=== PATIENT | female | born 1960 | race Caucasian/White ===

== ENCOUNTER 2020-09-30 16:38 | Emergency (ER) | payer OTHER ==
--- OUTSIDE RECORDS SUMMARY | 2020-09-30 16:41 | XMS REPORT | Continuity of Care Document ---
:1960 Author Organization [facility] Address [address] [place] [address] Care Team Providers Name Role Phone REINA Primary Care Physician Unavailable JERICHO Attending Clinician Unavailable ANGELINE JADE Attending Clinician Unavailable Payers Payer Name Policy Type Policy Number Effective Date Expiration Date Rochelle MARQUEZ O [id number] 2003 00:00:00 Problems This patient has no known problems. Allergies, Adverse Reactions, Alerts This patient has no known allergies or adverse reactions. Medications This patient has no known medications. Procedures This patient has no known procedures. Encounters Start End Encounter Admission Attending Care Care Encounter Source Date/Time Date/Time Type Type Clinicians Facility Department ID 2020-07-29 2020-07-29 Outpatient GERONIMO ECHAVARRIA MDA MDA [id number] 07:19:46 11:06:12 JUANA gagnon 2020-07-13 2020-07-13 Outpatient JASMIN GA MDA, MDA [id number] 10:18:06 11:44:46 Josh gagnon 2020-05-31 2020-05-31 Outpatient JASMIN GA MDA, MDA [id number] 00:00:00 00:00:00 Josh gagnon Results This patient has no known results.
--- NOTE | 2020-09-30 17:36 | RAD REPORT ---
EXAM DESCRIPTION: CT - Head Brain Wo Cont - 09/30/2020 5:23 pm CLINICAL HISTORY: DIZZINESS Headache, drowsiness, CVA symptomology COMPARISON: Head Brain Wo Cont dated 08/29/2018 TECHNIQUE: All CT scans are performed using dose optimization technique as appropriate and may inclu de automated exposure control or mA/KV adjustment according to patient size. FINDINGS: No intracranial hemorrhage, hydrocephalus or extra-axial fluid collection.Mild gliosis see n in the left posterior parietal lobe is unchanged.No areas of brain edema or evidence of midline shane ft. The paranasal sinuses and mastoids are clear. The calvarium is intact. IMPRESSION: No acute intracranial abnormality.
--- NOTE | 2020-09-30 17:49 | RAD REPORT ---
EXAM DESCRIPTION: RAD - Chest Single View - 09/30/2020 5:41 pm CLINICAL HISTORY: DYSPNEA Chest pain. COMPARISON: No comparisons FINDINGS: Portable technique limits examination quality. The lungs are mildly emphysematous but grossly clear. The heart is normal in size. No displaced fract ures. IMPRESSION: No acute intrathoracic process suspected.
[2020-09-30 17:50] LABS: Urine Blood NEGATIVE (NEG); Urine Glucose NEGATIVE (NEG); Urine Protein NEGATIVE (NEG); Urine Specific Gravity 1.015 (1.005-1.030)
[2020-09-30 17:57] LABS: Absolute Lymphocytes (CBC) 1.8 K/uL (0.7-4.9); Hematocrit 40.1 % (36.0-45.0); Lymphocytes % 36.7 % (15.3-44.8); MPV 9.5 fL (7.6-11.3); RBC Red Blood Cell Count 4.56 M/uL (3.86-4.86)
[2020-09-30 17:58] LABS: Protime INR 0.97
[2020-09-30] MEDS ORDERED: ASPIRIN 81 MG CHEWABLE TABLET ONE (18:09)
[2020-09-30] MEDS ORDERED: CLOPIDOGREL 75 MG TABLET ONE (18:09)
[2020-09-30 18:13] LABS: ALT/SGPT 21 U/L (12-78); AST/SGOT 19 U/L (15-37); Albumin 4.1 g/dL (3.4-5.0); Alkaline Phosphatase 80 U/L (45-117); BUN Blood Urea Nitrogen 21 mg/dL (7-18); Bicarbonate 31 mmol/L (21-32); Bilirubin Direct < 0.1 mg/dL (0-0.2); Bilirubin Total 0.3 mg/dL (0.2-1.0); Glucose Level 114 mg/dL (74-106); Magnesium 2.3 mg/dL (1.8-2.4); NT PRO-BNP 41 pg/mL (<125); Potassium 3.9 mmol/L (3.5-5.1); Protein, Total 7.8 g/dL (6.4-8.2); Sodium Level 141 mmol/L (136-145); Troponin (Emerg Dept Use Only) < 0.02 ng/mL (0.0-0.045)
--- NOTE | 2020-09-30 18:40 | EDPHYS ---
Physician Documentation [facility] Name: Preeti Lipscomb Age: 60 yrs Sex: Female : 1960 Arrival Date: 09/30/2020 Time: 16:47 Bed 16 Private MD: ED Physician Daniel Barney HPI: 09/30 18:46 This 60 yrs old Female presents to ER via Ambulatory with complaints of jr8 Vision Problem, Dizziness. 18:46 Onset: The symptoms/episode began/occurred acutely, just prior to arrival, today. jr8 Associated signs and symptoms: The patient has no apparent associated signs or symptoms. The patient has experienced similar episodes in the past, a few times. The patient has not recently seen a physician. Patient with history of TIAs in past. Off of her antiplatelet meds for a few years. Stated that she was walking in store and started to have visual defect to upper left corner of eye with dizziness and headache. Has had similar symptoms in past and ended up being TIA in nature . Historical: - Allergies: 16:58 Demerol; ll1 - PMHx: 16:58 TIA; kidney problems; ll1 - PSHx: 16:58 Hysterectomy; bladder sling; ll1 - Immunization history:: Flu vaccine is not up to date. - Social history:: Smoking status: Patient denies any tobacco usage or history of. ROS: 18:46 ENT: Negative for injury, pain, and discharge, Neck: Negative for injury, pain, and jr8 swelling, Cardiovascular: Negative for chest pain, palpitations, and edema, Respiratory: Negative for shortness of breath, cough, wheezing, and pleuritic chest pain, Abdomen/GI: Negative for abdominal pain, nausea, vomiting, diarrhea, and constipation, Back: Negative for injury and pain, MS/Extremity: Negative for injury and deformity, Skin: Negative for injury, rash, and discoloration. 18:46 Eyes: Positive for visual disturbance. 18:46 Neuro: Positive for dizziness, weakness. Exam: 18:46 Eyes: Pupils equal round and reactive to light, extra-ocular motions intact. Lids and jr8 lashes normal. Conjunctiva and sclera are non-icteric and not injected. Cornea within normal limits. Periorbital areas with no swelling, redness, or edema. ENT: Nares patent. No nasal discharge, no septal abnormalities noted. Tympanic membranes are normal and external auditory canals are clear. Oropharynx with no redness, swelling, or masses, exudates, or evidence of obstruction, uvula midline. Mucous membranes moist. Neck: Trachea midline, no thyromegaly or masses palpated, and no cervical lymphadenopathy. Supple, full range of motion without nuchal rigidity, or vertebral point tenderness. No Meningismus. Cardiovascular: Regular rate and rhythm with a normal S1 and S2. No gallops, murmurs, or rubs. Normal PMI, no JVD. No pulse deficits. Respiratory: Lungs have equal breath sounds bilaterally, clear to auscultation and percussion. No rales, rhonchi or wheezes noted. No increased work of breathing, no retractions or nasal flaring. Abdomen/GI: Soft, non-tender, with normal bowel sounds. No distension or tympany. No guarding or rebound. No evidence of tenderness throughout. Back: No spinal tenderness. No costovertebral tenderness. Full range of motion. Skin: Warm, dry with normal turgor. Normal color with no rashes, no lesions, and no evidence of cellulitis. MS/ Extremity: Pulses equal, no cyanosis. Neurovascular intact. Full, normal range of motion. Neuro: Awake and alert, GCS 15, oriented to person, place, time, and situation. Cranial nerves II-XII grossly intact. Motor strength 5/5 in all extremities. Sensory grossly intact. Cerebellar exam normal. Normal gait. Vital Signs: 16:54 BP 155 / 102; Pulse 71; Resp 16; Temp 97.3; Pulse Ox 98% ; Weight 67.59 kg; Height 5 ll1 ft. 3 in. (160.02 cm); Pain 5/10; 16:54 Body Mass Index 26.39 (67.59 kg, 160.02 cm) ll1 NIH Stroke Scale Scores: 17:15 NIHSS Score: 0 sv 18:46 NIHSS Score: 0 jr8 MDM: 17:12 Patient medically screened. jr8 18:37 Data reviewed: vital signs, nurses notes, lab test result(s), EKG, radiologic studies, jr8 CT scan, plain films. Data interpreted: Pulse oximetry: on room air is 98 %. Interpretation: normal. Counseling: I had a detailed discussion with the patient and/or guardian regarding: the historical points, exam findings, and any diagnostic results supporting the discharge/admit diagnosis, lab results, radiology results, the need for outpatient follow up, a neurologist, to return to the emergency department if symptoms worsen or persist or if there are any questions or concerns that arise at home. ED course: Patient with complete resolution of symptoms. Has history of TIAs in past but not on any antiplatelet therapy. Detailed discussion with needing this along with antilipidemic medication. Patient good with starting these and f/u with her neurologist. Also knows to come back if worse . 09/30 17:12 Order name: Basic Metabolic Panel; Complete Time: 18:27 09/30 17:12 Order name: CBC with Diff; Complete Time: 18: 09/30 17:12 Order name: LFT's; Complete Time: 18: 09/30 17:12 Order name: Magnesium; Complete Time: 18: 09/30 17:12 Order name: NT PRO-BNP; Complete Time: 18: 09/30 17:12 Order name: PT-INR; Complete Time: 18:09/30 17:12 Order name: Troponin (emerg Dept Use Only); Complete Time: 18:27 09/30 17:12 Order name: XRAY Chest (1 view); Complete Time: 18:08 09/30 17:14 Order name: CT Head Brain wo Cont; Complete Time: 17:43 tw2 09/30 17:45 Order name: Glucose, Ancillary Testing; Complete Time: 17:46 EDMS 09/30 17:45 Order name: Urine Dipstick--Ancillary (enter results); Complete Time: 18:08 bd 09/30 17:12 Order name: EKG; Complete Time: 17:13 09/30 17:12 Order name: Cardiac monitoring; Complete Time: 17:18 09/30 17:12 Order name: EKG - Nurse/Tech; Complete Time: 17:38 09/30 17:12 Order name: IV Saline Lock; Complete Time: 17:38 09/30 17:12 Order name: Labs collected and sent; Complete Time: 17:38 09/30 17:12 Order name: O2 Per Protocol; Complete Time: 17:38 09/30 17:12 Order name: O2 Sat Monitoring; Complete Time: 17:38 jr8 09/30 17:41 Order name: Urine Dipstick-Ancillary (obtain specimen); Complete Time: 17:41 sv Administered Medications: 17:58 Drug: PlaVIX 75 mg Route: PO; sv 19:15 Follow up: Response: No adverse reaction sv 17:59 Drug: Aspirin Chewable Tablet 162 mg Route: PO; sv 19:15 Follow up: Response: No adverse reaction sv Disposition: 10/01 07:32 Co-signature as Attending Physician, Daniel Barney MD I agree with the assessment and tw4 plan of care. Disposition: 09/30/20 18:39 Discharged to Home. Impression: Transient cerebral ischemic attack, unspecified. - Condition is Stable. - Discharge Instructions: Stroke Prevention, Transient Ischemic Attack, Amaurosis Fugax. - Prescriptions for Plavix 75 mg Oral Tablet - take 1 tablet by ORAL route once daily; 20 tablet. - Medication Reconciliation Form, Thank You Letter, Antibiotic Education, Prescription Opioid Use form. - Follow up: Suleiman Arriola MD; When: 2 - 3 days; Reason: Recheck today's complaints, Continuance of care, Re-evaluation by your physician. - Problem is new. - Symptoms have improved. - Notes: rosuvastatin 10mg once daily Aspirin 81mg once daily NIH Stroke Scale - NIH Stroke Score Date: 09/30/2020 Time: 17:15 Total Score = 0 1a. Level of Consciousness (LOC) - 0(Alert) 1b. Level of Consciousness (LOC) (Year \T\ Age) - 0(Both) 1c. LOC Commands (Open \T\ Closes Eyes/Software Asset Manager) - 0(Both) 2. Best Gaze (Lateral Gaze Paresis) - 0(Normal) 3. Visual Field Loss - 0(No visual loss) 4. Facial Palsy - 0(Normal) 5a. Left Arm: Motor (10-second hold) - 0(No drift) 5b. Right Arm: Motor (10-second hold) - 0(No drift) 6a. Left Leg: Motor (5-second hold - always test supine) - 0(No drift) 6b. Right Leg: Motor (5-second hold - always test supine) - 0(No drift) 7. Limb Ataxia (finger/nose \T\ heel/downs - test with eyes open) - 0(Absent) 8. Sensory Loss (pinprick arms/legs/face) - 0(Normal) 9. Best Language: Aphasia (description/naming/reading) - 0(No aphasia) 10. Dysarthria (speech clarity - read or repeat words) - 0(Normal) 11. Extinction and Inattention (visual/tactile/auditory/spatial/personal) - 0(No abnormality) Initials: kezia NIH Stroke Scale - NIH Stroke Score Date: 09/30/2020 Time: 18:46 Total Score = 0 1a. Level of Consciousness (LOC) - 0(Alert) 1b. Level of Consciousness (LOC) (Year \T\ Age) - 0(Both) 1c. LOC Commands (Open \T\ Closes Eyes/Software Asset Manager) - 0(Both) 2. Best Gaze (Lateral Gaze Paresis) - 0(Normal) 3. Visual Field Loss - 0(No visual loss) 4. Facial Palsy - 0(Normal) 5a. Left Arm: Motor (10-second hold) - 0(No drift) 5b. Right Arm: Motor (10-second hold) - 0(No drift) 6a. Left Leg: Motor (5-second hold - always test supine) - 0(No drift) 6b. Right Leg: Motor (5-second hold - always test supine) - 0(No drift) 7. Limb Ataxia (finger/nose \T\ heel/downs - test with eyes open) - 0(Absent) 8. Sensory Loss (pinprick arms/legs/face) - 0(Normal) 9. Best Language: Aphasia (description/naming/reading) - 0(No aphasia) 10. Dysarthria (speech clarity - read or repeat words) - 0(Normal) 11. Extinction and Inattention (visual/tactile/auditory/spatial/personal) - 0(No abnormality) Initials: jr8 Signatures: Dispatcher [employer] EDMS Carmelina Cao RN RN Alejandro Hernadez PA PA jr8 Daniel Barney MD MD tw4 Shane Nicole RN RN ll1 Corrections: (The following items were deleted from the chart) 09/30 17:26 17:23 CT-STROKE BRAIN W/O CONTRAST+CT.RAD.BRZ ordered. EDMS EDMS 19:15 18:39 09/30/2020 18:39 Discharged to Home. Impression: Transient cerebral sv ischemic attack, unspecified. Condition is Stable. Forms are Medication Reconciliation Form, Thank You Letter, Antibiotic Education, Prescription Opioid Use. Follow up: Suleiman Arriola; When: 2 - 3 days; Reason: Recheck today's complaints, Continuance of care, Re-evaluation by your physician. Problem is new. Symptoms have improved. jr8
--- NOTE | 2020-09-30 18:40 | ER ---
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 No trouble walking or talking. Coronavirus screen: Client denies travel out of the [place] in the last 14 days. At this time, the client does not indicate any symptoms associated with coronavirus-19. Ebola Screen: Patient denies travel to an Ebola-affected area in the 21 days before illness onset. Initial Sepsis Screen: Does the patient meet any 2 criteria? No. Patient's initial sepsis screen is negative. Does the patient have a suspected source of infection? No. Patient's initial sepsis screen is negative. Risk Assessment: Do you want to hurt yourself or someone else? Patient reports no desire to harm self or others. Onset of symptoms was September 30, 2020. 16:54 Method Of Arrival: Ambulatory ll1 16:54 Acuity: RAFAEL 2 ll1 Historical: - Allergies: 16:58 Demerol; ll1 - PMHx: 16:58 TIA; kidney problems; ll1 - PSHx: 16:58 Hysterectomy; bladder sling; ll1 - Immunization history:: Flu vaccine is not up to date. - Social history:: Smoking status: Patient denies any tobacco usage or history of. Screenin:15 Abuse screen: Denies threats or abuse. Denies injuries from another. Nutritional sv screening: No deficits noted. Tuberculosis screening: No symptoms or risk factors identified. Fall Risk None identified. Assessment: 17:14 Reassessment: Code Stroke called. sv 17:15 Reassessment: Alejandro COVINGTON at bedside. sv 17:15 General: Appears in no apparent distress. comfortable, well groomed, well developed, sv Behavior is calm, cooperative, appropriate for age. Pain: Denies pain. Neuro: Level of Consciousness is awake, alert, obeys commands, Oriented to person, place, time, situation, Kitchenhand are equal bilaterally Moves all extremities. Full function Gait is steady, Speech is normal, Facial symmetry appears normal. Respiratory: Airway is patent Respiratory effort is even, unlabored, Respiratory pattern is regular, symmetrical. Derm: Skin is intact, Skin is pink, warm \T\ dry. Musculoskeletal: Range of motion: intact in all extremities. 17:58 Reassessment: Patient appears in no apparent distress at this time. No changes from sv previously documented assessment. Patient and/or family updated on plan of care and expected duration. Pain level reassessed. Patient is alert, oriented x 3, equal unlabored respirations, skin warm/dry/pink. 19:15 Reassessment: Patient appears in no apparent distress at this time. No changes from sv previously documented assessment. Patient and/or family updated on plan of care and expected duration. Pain level reassessed. Patient is alert, oriented x 3, equal unlabored respirations, skin warm/dry/pink. Vital Signs: 16:54 BP 155 / 102; Pulse 71; Resp 16; Temp 97.3; Pulse Ox 98% ; Weight 67.59 kg; Height 5 ll1 ft. 3 in. (160.02 cm); Pain 5/10; 16:54 Body Mass Index 26.39 (67.59 kg, 160.02 cm) ll1 NIH Stroke Scale Scores: 17:15 NIHSS Score: 0 sv 18:46 NIHSS Score: 0 jr8 ED Course: 16:47 Patient arrived in ED. ds1 16:57 Triage completed. ll1 16:58 Arm band placed on. ll1 17:10 Carmelina Cao, EZIO is Primary Nurse. sv 17:11 Alejandro Johnston PA is PHCP. jr8 17:11 Daniel Barney MD is Attending Physician. jr8 17:15 Patient has correct armband on for positive identification. Placed in gown. Bed in low sv position. Call light in reach. Side rails up X2. library monitor on. Pulse ox on. NIBP on. Door closed. Head of bed elevated. 17:[address] via stretcher. sv 17:24 CT Head Brain wo Cont In Process Unspecified. EDMS 17:26 Patient moved back from CT. sv 17:27 X-ray(s) taken. sv 17:30 Inserted saline lock: 20 gauge in left antecubital area, using aseptic technique. Blood sv collected. Flushed left antecubital with 5 ml normal saline. 17:40 EKG done, by ED staff, reviewed by Alejandro COVINGTON. sv 17:41 XRAY Chest (1 view) In Process Unspecified. EDMS 18:39 Suleiman Arriola MD is Referral Physician. jr8 19:15 No provider procedures requiring assistance completed. IV discontinued, intact, sv bleeding controlled, No redness/swelling at site. Pressure dressing applied. Administered Medications: 17:58 Drug: PlaVIX 75 mg Route: PO; sv 19:15 Follow up: Response: No adverse reaction sv 17:59 Drug: Aspirin Chewable Tablet 162 mg Route: PO; sv 19:15 Follow up: Response: No adverse reaction sv Outcome: 18:39 Discharge ordered by . jr8 19:15 Patient left the ED. sv 19:15 Discharged to home ambulatory. sv 19:15 Condition: stable 19:15 Discharge instructions given to patient, Instructed on discharge instructions, follow up and referral plans. medication usage, Demonstrated understanding of instructions, follow-up care, medications, Prescriptions given X 1. NIH Stroke Scale - NIH Stroke Score Date: 09/30/2020 Time: 17:15 Total Score = 0 1a. Level of Consciousness (LOC) - 0(Alert) 1b. Level of Consciousness (LOC) (Year \T\ Age) - 0(Both) 1c. LOC Commands (Open \T\ Closes Eyes/Supply Technician) - 0(Both) 2. Best Gaze (Lateral Gaze Paresis) - 0(Normal) 3. Visual Field Loss - 0(No visual loss) 4. Facial Palsy - 0(Normal) 5a. Left Arm: Motor (10-second hold) - 0(No drift) 5b. Right Arm: Motor (10-second hold) - 0(No drift) 6a. Left Leg: Motor (5-second hold - always test supine) - 0(No drift) 6b. Right Leg: Motor (5-second hold - always test supine) - 0(No drift) 7. Limb Ataxia (finger/nose \T\ heel/downs - test with eyes open) - 0(Absent) 8. Sensory Loss (pinprick arms/legs/face) - 0(Normal) 9. Best Language: Aphasia (description/naming/reading) - 0(No aphasia) 10. Dysarthria (speech clarity - read or repeat words) - 0(Normal) 11. Extinction and Inattention (visual/tactile/auditory/spatial/personal) - 0(No abnormality) Initials: kezia NIH Stroke Scale - NIH Stroke Score Date: 09/30/2020 Time: 18:46 Total Score = 0 1a. Level of Consciousness (LOC) - 0(Alert) 1b. Level of Consciousness (LOC) (Year \T\ Age) - 0(Both) 1c. LOC Commands (Open \T\ Closes Eyes/Supply Technician) - 0(Both) 2. Best Gaze (Lateral Gaze Paresis) - 0(Normal) 3. Visual Field Loss - 0(No visual loss) 4. Facial Palsy - 0(Normal) 5a. Left Arm: Motor (10-second hold) - 0(No drift) 5b. Right Arm: Motor (10-second hold) - 0(No drift) 6a. Left Leg: Motor (5-second hold - always test supine) - 0(No drift) 6b. Right Leg: Motor (5-second hold - always test supine) - 0(No drift) 7. Limb Ataxia (finger/nose \T\ heel/downs - test with eyes open) - 0(Absent) 8. Sensory Loss (pinprick arms/legs/face) - 0(Normal) 9. Best Language: Aphasia (description/naming/reading) - 0(No aphasia) 10. Dysarthria (speech clarity - read or repeat words) - 0(Normal) 11. Extinction and Inattention (visual/tactile/auditory/spatial/personal) - 0(No abnormality) Initials: jrDwayne Signatures: Dispatcher [employer] Carmelina Diallo, Maria L Carl RN ds1 Alejandro Johnston PA PA jrShane Mcintosh RN RN ll1
[2020-09-30 19:22] VITALS: BP 155/102; TEMP 97.3; O2SAT 98
== END 2020-09-30 19:15 | disposition home or self-care (01) ==
LOC: ER 16:38
DX: G45.9 Transient cerebral ischemic attack, unspecified (principal); R29.700 NIHSS score 0; Z88.5 Allergy status to narcotic agent
CPT/HCPCS: 36415; 70450; 71045; 80048; 80076; 81003; 82947; 83735; 83880; 84484; 85025; 85610; 93005; 99285

== ENCOUNTER 2021-07-30 19:44 | Emergency (ER) | payer OTHER ==
--- OUTSIDE RECORDS SUMMARY | 2021-07-30 19:46 | XMS REPORT | Continuity of Care Document ---
:1960 Author Organization [facility] Address [address] [place] [address] Care Team Providers Name Role Phone REINA Primary Care Physician Unavailable ANGELINE JADE Attending Clinician Unavailable JERICHO Attending Clinician Unavailable Payers Payer Name Policy Type Policy Number Effective Date Expiration Date Rochelle MARQUEZ O [id number] 2003 00:00:00 Problems This patient has no known problems. Allergies, Adverse Reactions, Alerts This patient has no known allergies or adverse reactions. Medications This patient has no known medications. Procedures This patient has no known procedures. Encounters Start End Encounter Admission Attending Care Care Encounter Source Date/Time Date/Time Type Type Clinicians Facility Department ID 2021-01-11 2021-01-11 Outpatient GERONIMO JADE JASMIN NIEVES MDA [id number] 14:13:51 15:18:40 Josh gagnon 2020-10-14 2020-10-14 Outpatient GERONIMO ECHAVARRIA MDA MDA [id number] 10:03:57 12:00:57 JUANA gagnon 2020-10-14 2020-10-14 Outpatient JASMIN GA MDA MDA [id number] 08:31:01 09:10:27 Josh gagnon 2020-07-29 2020-07-29 Outpatient GERONIMO ECHAVARRIA LIZBETH MDA [id number] 07:19:46 11:06:12 JUANA gagnon 2020-07-13 2020-07-13 Outpatient JASMIN GA MDA MDA [id number] 10:18:06 11:44:46 Josh gagnon 2020-05-31 2020-05-31 Outpatient GERONIMO JASMIN JADE MDA MDA [id number] 00:00:00 00:00:00 Josh gagnon Results This patient has no known results.
[2021-07-30] MEDS ORDERED: ALBUTEROL 2.5 MG/3 ML NEB SOL ONE (20:03)
[2021-07-30] MEDS ORDERED: IPRATROPIUM BROM 0.5MG/2.5ML ONE (20:03)
[2021-07-30] MEDS ORDERED: HYDROCODONE/CHLORPHEN 5 ML/OSYR ONE (20:03)
[2021-07-30 20:19] LABS: Absolute Lymphocytes (CBC) 1.2 K/uL (0.7-4.9); Basophils % 0.6 % (0-1.3); Hematocrit 37.8 % (36.0-45.0); Lymphocytes % 27.7 % (15.3-44.8); MPV 8.4 fL (7.6-11.3); RBC Red Blood Cell Count 4.35 M/uL (3.86-4.86)
[2021-07-30 20:27] LABS: Protime INR 1.04
[2021-07-30 20:43] LABS: ALT/SGPT 33 U/L (12-78); AST/SGOT 31 U/L (15-37); Albumin 3.3 g/dL (3.4-5.0); Alkaline Phosphatase 64 U/L (45-117); BUN Blood Urea Nitrogen 12 mg/dL (7-18); Bicarbonate 27 mmol/L (21-32); Bilirubin Direct < 0.1 mg/dL (0-0.2); Bilirubin Total 0.3 mg/dL (0.2-1.0); Glucose Level 117 mg/dL (74-106); Magnesium 2.1 mg/dL (1.8-2.4); NT PRO-BNP 56 pg/mL (<125); Potassium 3.8 mmol/L (3.5-5.1); Protein, Total 7.1 g/dL (6.4-8.2); Sodium Level 139 mmol/L (136-145); Troponin (Emerg Dept Use Only) < 0.02 ng/mL (0.0-0.045)
[2021-07-30 21:12] LABS: SARS-COV-2 RT PCR POSITIVE (NEGATIVE)
[2021-07-30] MEDS ORDERED: ACETAMINOPHEN 500 MG TAB ONE (21:13)
[2021-07-30] MEDS ORDERED: CASIRIVIMAB/IMDEVIMAB 10 ML VIAL ONE (21:39)
[2021-07-30] MEDS ORDERED: NA CHLORIDE 0.9% 250 ML ONE (21:39)
[2021-07-30] MEDS ORDERED: METHYLPREDNISOLONE 125 MG INJ ONE (21:39)
[2021-07-30] MEDS ORDERED: NA CHLORIDE 0.9% 1,000 ML ONE (21:39)
--- NOTE | 2021-07-30 21:51 | RAD REPORT ---
EXAM DESCRIPTION: RAD - Chest Single View - 07/30/2021 9:35 pm CLINICAL HISTORY: COUGH Chest pain. COMPARISON: Chest Single View dated 09/30/2020 FINDINGS: Portable technique limits examination quality. 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 The heart is normal in size. No displaced fractures.
[2021-07-30 22:18] LABS: Ferritin 369.6 ng/mL (8-388)
--- NOTE | 2021-07-31 01:33 | EDPHYS ---
Physician Documentation [facility] Name: Preeti Lipscomb Age: 61 yrs Sex: Female : 1960 Arrival Date: 07/30/2021 Time: 19:43 Bed 2 Private MD: ED Physician Kvng Enrique HPI: 07/30 20:00 This 61 yrs old Female presents to ER via EMS with complaints of Cough. cp 20:00 The patient or guardian reports cough, that is constant. Onset: The symptoms/episode cp began/occurred 4 day(s) ago. Associated signs and symptoms: Pertinent positives: fever, Pertinent negatives: chest pain, diarrhea, vomiting. Severity of symptoms: in the emergency department the symptoms are unchanged despite home interventions. Patient reports similar symptoms about 2 weeks ago and testing negative for COVID-19 12 days ago. Cough returned 4 days ago. Was seen by PCP who prescribed cough medicine. Patient is not vaccinated against COVID-19. Historical: - Allergies: 19:47 Demerol; em - PMHx: 19:47 kidney problems; TIA; Depressive disorder; Anxiety; Hypercholesterolemia; em - PSHx: 19:47 hysterectomy; bladder suspension; em - Immunization history:: Client reports having NOT received the Covid vaccine. - Social history:: Smoking status: Patient denies any tobacco usage or history of. ROS: 20:05 Constitutional: Positive for fever, Negative for body aches, chills, poor PO intake. cp 20:05 Eyes: Negative for injury, pain, redness, and discharge. cp 20:05 Neck: Negative for pain with movement, pain at rest, stiffness. 20:05 Cardiovascular: Negative for chest pain, edema, palpitations. 20:05 Respiratory: Positive for cough, "sounds productive", shortness of breath. 20:05 Abdomen/GI: Negative for vomiting, diarrhea, constipation, anorexia. 20:05 : Negative for urinary symptoms. 20:05 Neuro: Negative for altered mental status, headache, numbness, weakness. 20:05 All other systems are negative. Exam: 20:10 Constitutional: The patient appears in no acute distress, alert, awake, non-toxic, well cp developed, well nourished. 20:10 Head/Face: Normocephalic, atraumatic. cp 20:10 Eyes: Periorbital structures: appear normal, Conjunctiva: normal, no exudate, no injection, Sclera: no appreciated abnormality, Lids and lashes: appear normal, bilaterally. 20:10 ENT: External ear(s): are unremarkable, Ear canal(s): are normal, clear, TM's: dullness, bilaterally, Nose: is normal, Mouth: Lips: moist, Oral mucosa: pink and intact, moist, Posterior pharynx: Airway: no evidence of obstruction, patent, Tonsils: are normal in appearance, Uvula: midline, swelling, is not appreciated, erythema, is not appreciated, exudate, is not appreciated. 20:10 Neck: ROM/movement: is normal, is supple, without pain, no range of motions limitations, no meningismus. 20:10 Chest/axilla: Inspection: normal, Palpation: is normal, no crepitus, no tenderness. 20:10 Cardiovascular: Rate: normal, Rhythm: regular, Edema: is not appreciated, JVD: is not appreciated. 20:10 Respiratory: the patient does not display signs of respiratory distress, Respirations: labored breathing, that is mild, intercostal retractions, are absent, Breath sounds: bronchial sounds, that are mild, are heard diffusely, stridor, is not appreciated, + upper airway congestion. wheezing: is not appreciated. 20:10 Abdomen/GI: Inspection: abdomen appears normal, Bowel sounds: active, all quadrants, Palpation: abdomen is soft and non-tender, in all quadrants. 20:10 Back: pain, is absent, ROM is normal. 20:10 Skin: no rash present. 20:10 Neuro: Orientation: to person, place \\T\\ time. Mentation: is normal, Motor: moves all fours, strength is normal, Sensation: is normal. Vital Signs: 19:45 BP 122 / 78; Pulse 98; Resp 20; Pulse Ox 95% on R/A; Weight 68.04 kg; Height 5 ft. 2 em in. (157.48 cm); Pain 0/10; 21:09 BP 112 / 72; Pulse 106; Resp 20; Temp 100.9(O); Pulse Ox 92% on R/A; em 23:14 BP 109 / 66; Pulse 83; Resp 20; Pulse Ox 94% on R/A; em 11 00:18 BP 105 / 67; Pulse 77; Resp 18; Pulse Ox 90% on R/A; em 01:48 BP 106 / 72; Pulse 79; Resp 20; Pulse Ox 97% on R/A; em 07/30 19:45 Body Mass Index 27.44 (68.04 kg, 157.48 cm) em MDM: 07/30 19:54 Patient medically screened. cp 20:00 Differential diagnosis: bronchitis, flu, pneumonia, pulmonary embolism, COVID-19. 07/31 01:30 Data reviewed: vital signs, nurses notes, lab test result(s), radiologic studies, CT cp scan, plain films. 01:30 Test interpretation: by ED physician or midlevel provider: plain radiologic studies. cp Counseling: I had a detailed discussion with the patient and/or guardian regarding: the historical points, exam findings, and any diagnostic results supporting the discharge/admit diagnosis, lab results, radiology results, to return to the emergency department if symptoms worsen or persist or if there are any questions or concerns that arise at home. Response to treatment: the patient's symptoms have markedly improved after treatment. ED course: VSS. Patient appears non-toxic and no signs of respiratory distress. Will discharge to home for continued monitoring. 07/30 19:52 Order name: Basic Metabolic Panel; Complete Time: 21:26 cp 07/30 19:52 Order name: CBC with Diff; Complete Time: 21:26 cp 07/30 19:52 Order name: LFT's; Complete Time: 21:26 cp 07/30 19:52 Order name: Magnesium; Complete Time: 21:26 cp 07/30 19:52 Order name: NT PRO-BNP; Complete Time: 21:26 cp 07/30 19:52 Order name: PT-INR; Complete Time: 21:26 07/30 19:52 Order name: Troponin (emerg Dept Use Only); Complete Time: 21:26 cp 07/30 19:52 Order name: XRAY Chest (1 view); Complete Time: 23:27 cp 07/30 23:27 Interpretation: Report reviewed. 07/30 20:22 Order name: COVID-19/FLU A+B; Complete Time: 21:26 EDMS 07/30 21:30 Order name: CRP cp 07/30 21:30 Order name: Ferritin; Complete Time: 23:27 07/30 21:31 Order name: C-Reactive Protein; Complete Time: 23:27 EDMS 07/30 23:27 Interpretation: Abnormal: C-REACTIVE PROT 13.00. cp 07/30 19:52 Order name: EKG; Complete Time: 19:53 cp 07/30 19:52 Order name: Cardiac monitoring; Complete Time: 20:02 cp 07/30 19:52 Order name: EKG - Nurse/Tech; Complete Time: 20:02 cp 07/30 19:52 Order name: IV Saline Lock; Complete Time: 20:15 cp 07/30 19:52 Order name: Labs collected and sent; Complete Time: 20:15 cp 07/30 19:52 Order name: O2 Per Protocol; Complete Time: 20:02 07/30 19:52 Order name: O2 Sat Monitoring; Complete Time: 20:02 cp 07/30 21:33 Order name: CT Chest For PE Angio cp Administered Medications: 07/30 20:10 Drug: Tussionex Pennkinetic ER (chlorpheniramine-hydrocodone) Suspension 5 ml Route: PO;em 20:46 Follow up: Response: No adverse reaction; Marked relief of symptoms em 20:12 Drug: Albuterol - atroVENT (ipratropium) (3:1) (2.5 mg - 0.5 mg) 3 ml Route: Nebulizer; em 20:46 Follow up: Response: No adverse reaction; Marked relief of symptoms em 21:23 Drug: Tylenol 1000 mg Route: PO; em 07/31 02:02 Follow up: Response: No adverse reaction em 07/30 21:38 Not Given (Physician Discretion): Albuterol HFA Inhaler 2 puffs Inhalation once cp 21:52 Drug: NS 0.9% 500 ml Route: IV; Rate: bolus; Site: left antecubital; em 07/31 00:23 Follow up: IV Status: Completed infusion; IV Intake: 500ml em 07/30 21:53 Drug: SOLU-Medrol (methylPrednisoLONE) 125 mg Route: IVP; Site: right antecubital; em 07/31 00:23 Follow up: Response: No adverse reaction em 07/30 23:10 Drug: Casirivimab-Imdevimab Dose Pack 120 mg/mL-120 mg/mL (EUA) 1 application Route: em IV; Rate: calculated rate; Site: left antecubital; 07/31 00:23 Follow up: Response: No adverse reaction; IV Status: Completed infusion; IV Intake: em 270ml 07/30 23:13 Drug: NS 0.9% 500 ml Route: IV; Rate: 125 ml/hr; Site: left antecubital; em 07/31 02:01 Follow up: IV Status: Order to discontinue infusion; IV Intake: 500ml em Disposition: 19:09 Co-signature as Attending Physician, Kvng Enrique MD. [email or web address] Disposition Summary: 07/31/21 01:32 Discharge Ordered Location: Home cp Problem: new cp Symptoms: have improved cp Condition: Stable cp Diagnosis - Pneumonia due to SARS-associated coronavirus cp Followup: cp - With: Private Physician - When: 2 - 3 days - Reason: Recheck today's complaints Discharge Instructions: - Discharge Summary Sheet cp - Aspirin and Your Heart cp - COVID-19 cp - COVID-19 Frequently Asked Questions cp - 10 Things You Can Do to Manage Your COVID-19 Symptoms at Home - [facility] cp Forms: - Medication Reconciliation Form cp - Thank You Letter cp - Antibiotic Education cp - Prescription Opioid Use cp Prescriptions: - albuterol sulfate 90 mcg/actuation Inhalation HFA aerosol inhaler - inhale 1 puff by INHALATION route every 4-6 hours; 1 Device; Refills: 0, cp Product Selection Permitted - Zithromax Z-Zeeshan 250 mg Oral Tablet - take 1 tablet by ORAL route as directed for 5 days Day 1 - take two (2) tablets cp one time. Day 2, 3, 4 , 5 take one (1) tablet once daily.; 6 tablet; Refills: 0, Product Selection Permitted - Prednisone 20 mg Oral Tablet - take 2 tablets by ORAL route once daily for 5 days then 1 tablet daily for 3 cp days, then 1/2 tablet daily for 2 days; 14 tablet; Refills: 0, Product Selection Permitted Signatures: Dispatcher [employer] Gavino Evans RN RN em Daniel Freeman PA PA cp Kvng Enrique MD MD [email or web address] Corrections: (The following items were deleted from the chart) 07/30 20:22 19:53 CORONAVIRUS+MR.LAB.BRZ ordered. EDNJ EDMS 20:23 19:53 Influenza Screen (A \\T\\ B)+BA.LAB.BRZ ordered. EDMS EDMS
--- NOTE | 2021-07-31 01:33 | ER ---
Nurse's Notes [facility] Name: Preeti Lipscomb Age: 61 yrs Sex: Female : 1960 Arrival Date: 07/30/2021 Time: 19:43 Bed 2 Private MD: Diagnosis: Pneumonia due to SARS-associated coronavirus Presentation: 07/30 19:45 Chief complaint: EMS states: covid symptoms, lost of taste and smell today, fever em yesterday, tested neg. 12 days ago, SPO2 92-94% on arrival. Coronavirus screen: Vaccine status: Patient reports being unvaccinated. Ebola Screen: Patient negative for fever greater than or equal to 101.5 degrees Fahrenheit, and additional compatible Ebola Virus Disease symptoms Patient denies exposure to infectious person. Patient denies travel to an Ebola-affected area in the 21 days before illness onset. No symptoms or risks identified at this time. Initial Sepsis Screen: Does the patient meet any 2 criteria? HR > 90 bpm. No. Patient's initial sepsis screen is negative. Does the patient have a suspected source of infection? No. Patient's initial sepsis screen is negative. Risk Assessment: Do you want to hurt yourself or someone else? Patient reports no desire to harm self or others. Onset of symptoms was July 30, 2021. 19:45 Method Of Arrival: EMS: [facility] em 19:45 Acuity: RAFAEL 3 em Historical: - Allergies: 19:47 Demerol; em - PMHx: 19:47 kidney problems; TIA; Depressive disorder; Anxiety; Hypercholesterolemia; em - PSHx: 19:47 hysterectomy; bladder suspension; em - Immunization history:: Client reports having NOT received the Covid vaccine. - Social history:: Smoking status: Patient denies any tobacco usage or history of. Screenin:45 Abuse screen: Denies threats or abuse. Nutritional screening: No deficits noted. em Tuberculosis screening: No symptoms or risk factors identified. Fall Risk None identified. Assessment: 19:50 General: Appears in no apparent distress. comfortable, well groomed, well developed, em well nourished, Behavior is calm, cooperative, appropriate for age, Reports fever for 12-24 hours. Pain: Denies pain. Neuro: Level of Consciousness is awake, alert, obeys commands, Oriented to person, place, time, situation, Appropriate for age. Cardiovascular: Capillary refill < 3 seconds Patient's skin is warm and dry. Respiratory: Reports shortness of breath cough that is Airway is patent Respiratory effort is even, unlabored, Respiratory pattern is regular, symmetrical, Breath sounds are diminished bilaterally. Derm: Skin is intact, is healthy with good turgor, Skin is pink, warm \T\ dry. Musculoskeletal: Capillary refill < 3 seconds, Range of motion: intact in all extremities. 21:08 Reassessment: Patient appears in no apparent distress at this time. Patient and/or em family updated on plan of care and expected duration. Pain level reassessed. Patient states feeling better. Patient states symptoms have improved. 23:10 Reassessment: Patient appears in no apparent distress at this time. Patient and/or em family updated on plan of care and expected duration. Pain level reassessed. Patient is alert, oriented x 3, equal unlabored respirations, skin warm/dry/pink. 07/31 00:18 Reassessment: Patient appears in no apparent distress at this time. Patient and/or em family updated on plan of care and expected duration. Pain level reassessed. Patient is alert, oriented x 3, equal unlabored respirations, skin warm/dry/pink. Vital Signs: 07/30 19:45 BP 122 / 78; Pulse 98; Resp 20; Pulse Ox 95% on R/A; Weight 68.04 kg; Height 5 ft. 2 em in. (157.48 cm); Pain 0/10; 21:09 BP 112 / 72; Pulse 106; Resp 20; Temp 100.9(O); Pulse Ox 92% on R/A; em 23:14 BP 109 / 66; Pulse 83; Resp 20; Pulse Ox 94% on R/A; em 07/31 00:18 BP 105 / 67; Pulse 77; Resp 18; Pulse Ox 90% on R/A; em 01:48 BP 106 / 72; Pulse 79; Resp 20; Pulse Ox 97% on R/A; em 07/30 19:45 Body Mass Index 27.44 (68.04 kg, 157.48 cm) em ED Course: 07/30 19:43 Patient arrived in ED. mw2 19:45 Patient has correct armband on for positive identification. Call light in reach. Side em rails up X2. Pulse ox on. NIBP on. 19:46 Triage completed. em 19:47 Arm band placed on. em 19:51 Daniel Freeman PA is [facility]. cp 19:51 Kvng Enrique MD is Attending Physician. cp 20:00 Gavino Alvarez, RN is Primary Nurse. em 20:00 Initial lab(s) drawn, by me, sent to lab. Inserted saline lock: 22 gauge in left em antecubital area, using aseptic technique. Blood collected. 20:02 EKG done, by ED staff, reviewed by Daniel COVINGTON. em 21:34 XRAY Chest (1 view) In Process Unspecified. EDMS 22:27 CT Chest For PE Angio In Process Unspecified. EDMS 11 01:47 No provider procedures requiring assistance completed. IV discontinued, intact, em bleeding controlled, No redness/swelling at site. Pressure dressing applied. Administered Medications: 07/30 20:10 Drug: Tussionex Pennkinetic ER (chlorpheniramine-hydrocodone) Suspension 5 ml Route: PO;em 20:46 Follow up: Response: No adverse reaction; Marked relief of symptoms em 20:12 Drug: Albuterol - atroVENT (ipratropium) (3:1) (2.5 mg - 0.5 mg) 3 ml Route: Nebulizer; em 20:46 Follow up: Response: No adverse reaction; Marked relief of symptoms em 21:23 Drug: Tylenol 1000 mg Route: PO; em 07/31 02:02 Follow up: Response: No adverse reaction em 07/30 21:38 Not Given (Physician Discretion): Albuterol HFA Inhaler 2 puffs Inhalation once cp 21:52 Drug: NS 0.9% 500 ml Route: IV; Rate: bolus; Site: left antecubital; em 07/31 00:23 Follow up: IV Status: Completed infusion; IV Intake: 500ml em 07/30 21:53 Drug: SOLU-Medrol (methylPrednisoLONE) 125 mg Route: IVP; Site: right antecubital; em 07/31 00:23 Follow up: Response: No adverse reaction em 07/30 23:10 Drug: Casirivimab-Imdevimab Dose Pack 120 mg/mL-120 mg/mL (EUA) 1 application Route: em IV; Rate: calculated rate; Site: left antecubital; 07/31 00:23 Follow up: Response: No adverse reaction; IV Status: Completed infusion; IV Intake: em 270ml 07/30 23:13 Drug: NS 0.9% 500 ml Route: IV; Rate: 125 ml/hr; Site: left antecubital; em 07/31 02:01 Follow up: IV Status: Order to discontinue infusion; IV Intake: 500ml em Intake: 00:23 IV: 270ml; Total: 270ml. em 00:23 IV: 500ml; Total: 770ml. em 02:01 IV: 500ml; Total: 1270ml. em Outcome: 01:32 Discharge ordered by MD. cp 01:47 Discharged to home via wheelchair. em 01:47 Condition: stable 01:47 Discharge instructions given to patient, Instructed on discharge instructions, follow up and referral plans. medication usage, Demonstrated understanding of instructions, follow-up care, medications, Prescriptions given X 3. 02:02 Patient left the ED. em Signatures: Dispatcher [employer] Gavino Evans RN RN em Daniel Freeman PA PA cp [place], MyKena mw2
[2021-07-31 02:10] VITALS: TEMP 100.9
[2021-07-31 02:15] VITALS: BP 106/72; O2SAT 97
--- NOTE | 2021-07-31 14:20 | RAD REPORT ---
EXAM DESCRIPTION: CT - Chest For Pe Angio - 07/31/2021 6:38 am Chest For Pe Angio CLINICAL HISTORY: 61 years Female SOB COMPARISON: None TECHNIQUE: Images were obtained in axial, sagittal, and coronal planes. Intravenous contrast was adm inistered. This exam was performed according to our departmental dose-optimization program which includes use of Automated Exposure Control, adjustment of the mA and/or kV according to patient size and/or use of iterative reconstruction technique. FINDINGS: No filling defects pulmonary arteries bilaterally. No aortic dissection or dilatation. Enl arged heart. No pericardial or pleural effusions bilaterally. No adenopathy. Extensive ill-defined airspace attenuation lung cunningham bilaterally. Ill-defined nodular components pr esent. No pneumothorax. No acute osseous abnormality. No abnormality upper abdomen. IMPRESSION: No evidence for pulmonary embolus. No aortic dissection or dilatation. Extensive bilater al infiltrates consistent with but not specific for atypical pneumonia including viral infection. Electronically signed by: Anaid Iglesias MD 07/30/2021 11:03 PM MEDICAL ACCOUNTS RECEIVABLE SPECIALIST Due to temporary technical issues with the PACS/Fluency reporting system, reports are being signed by the in house radiologists without review as a courtesy to insure prompt reporting. The interpreting radiologist is fully responsible for the content of the report.
--- NOTE | 2021-08-03 08:15 | EKG ---
Test Date: 2021-07-30 Test Time: 19:55:44 Power Ballast Machine Operator: SCARLET MEASUREMENT RESULTS: Intervals: Rate: 98 MD: 154 QRSD: 126 QT: 352 QTc: 449 [place]: P: 45 MD: 154 QRS: -33 T: 26 INTERPRETIVE STATEMENTS: Normal sinus rhythm Left axis deviation Right bundle branch block Abnormal ECG Compared to ECG 09/30/2020 17:38:51 Left-axis deviation now present Electronically Signed On 08-03-21 08:04:37 RN RECRUITMENT by Pascual Rosales
== END 2021-07-31 02:02 | disposition home or self-care (01) ==
LOC: ER 19:44
DX: U07.1 COVID-19 (principal); J12.82 Pneumonia due to coronavirus disease 2019
CPT/HCPCS: 96365; 96361; 93005; 85025; 80048; 36415; 83735; 85610; 80076; 84484; 82728; 83880; 0240U; 86140; 71275; 71045; 94640; 96375; 99285; Q9967; J7050; J7030; J2930; M0243